=== PATIENT | male | born 1960 | race African-American/Black ===

== ENCOUNTER → 2016-06-20 | Outpatient (CLI) | payer OTHER ==
[~2016-06-20] VITALS: Ht 170.2 cm; Wt 84.4 kg
[~2016-06-20] MED LIST: ADULT LOW DOSE81 MG PO; ADVIL COLD & S1 EAC1 PO; ADVIL MIGRAINE200 M1 PO; ALEVE220 MG PO; DOXYCYCLINE 10100 MG PO; MILLIPRED DP5 MG PO; NABUMETONE 750750 M1 PO; NORCO 5-325 TA1 EACH PO; PRINIVIL20 MG PO; THERAFLU MULTI1 EACH PO
--- NOTE | ~2016-06-20 | HPC ---
[facility] [address] [place] [address] PAIN MANAGEMENT CONSULTATION Name: SALLY ZAVALA III Room #: REG [address].#: [id number] Admission: 06/20/16 Attend Phys: Chad Cooper DO Discharge: Date of : 64 Report #: [id number] THIS REPORT FOR: //name// CC: Martin Cooper The patient is a very pleasant 55-year-old gentleman seen in consultation at request of Dr. Brenda Viera for evaluation of pain, neck, right shoulder and arm, tingling going into the forearm and radiating to the fourth and fifth finger. The patient notes that the symptoms began in February without antecedent trauma and overuse. He has tried ucri-mri-ndiakpe nonsteroidal anti-inflammatory medications, exercise and physical therapy with some efficacy. Notes pain seems to be exacerbated with bending his neck or lying recumbent. Little seems to give him relief. Describes continuous aching, gnawing, throbbing pain. He rates it 8 on a 0-10 visual analog scale. REVIEW OF SYSTEMS: Complete review of systems is attached to chart and gone over with the patient. SOCIAL HISTORY: He is . Does not smoke or drink alcohol to excess. He has enjoyed remarkably good health. Has some hypertension for which he takes lisinopril. He owns an auto dealership. He has continued to work despite pain. Pain impact score is fairly low, averaging about 4.2 for all indices queried. PHYSICAL EXAMINATION: VITAL SIGNS: Reveals 5 feet 7 inches, 186 pounds gentleman, BMI is 29.1 kilograms per meter squared. Blood pressure is 148/97, pulse 73, respirations 16. NEUROLOGIC: Cranial 2-12 are grossly intact. HEENT: Pupils equal, reactive to light and accommodation. Extraocular muscles are intact. NECK: Cervical range of motion is limited. EXTREMITIES: Positive Lhermitte's, which seems to be going into the right arm. Biceps reflex is absent. All other reflexes are 1/4. Hand grasp is modestly diminished on the right. Deltoid, biceps, triceps strength is pretty symmetric about 4-5/5. HEART: Regular rhythmical without murmur. LUNGS: Clear to auscultation. ABDOMEN: Unremarkable. NEUROLOGIC: Gait is tandem. Lower extremity strength is preserved. Skin integument is intact. DIAGNOSTIC STUDIES: Include MRI of the cervical spine from 06/16/2016 noting C5-C6 to have moderate right uncinate hypertrophy with severe right neural foraminal stenosis. This corresponds with the patient's radicular symptoms. [address] [address] PAIN MANAGEMENT CONSULTATION Name: SALLY ZAVALA [facility] Room #: REG Travis Mancuso#: [id number] Admission: 06/20/16 Attend Phys: Chad Cooper DO Discharge: Date of : 64 Report #: [id number] ASSESSMENT: Symptomatic cervical radiculopathy in a pleasant 55-year-old gentleman whose comorbidity includes only hypertension. RECOMMENDATIONS: 1. Fluoroscopic guided cervical epidural injection today. 2. Nabumetone 750 b.i.d., discontinue any mkcz-ejb-ererroe anti-inflammatories. 3. Follow up in 2-3 weeks for reevaluation. Thank you for allowing me to participate in the patient's care. I will keep you abreast of his progress. PROCEDURE NOTE: Cervical epidural injection under fluoroscopy. PROCEDURE NOTE: After written and informed consent was obtained including risk of dural puncture, spinal cord trauma, paralysis and increased pain, the patient was taken to the fluoroscopy suite and placed in the prone position, with appropriate abdominal bolstering, neck was flexed, palms under the thighs. Skin was prepped with ChloraPrep. Sterile draping was applied. Skin wheal with 1% Xylocaine was raised. A 22-gauge 3-1/2 inch epidural Tuohy needle was placed via a midline approach at the C7-T1 interspace, advanced under biplanar fluoroscopy using continuous loss of resistance. With appropriate loss of resistance at the expected depth on lateral view, the glass loss of resistance syringe was disconnected. A low volume extension tubing was connected to the needle and a 5 mL syringe. Negative aspiration for cerebrospinal fluid or blood was noted. A 1 mL of Omnipaque was injected which showed spread within the epidural space on biplanar fluoroscopy. This was followed with 80 mg of triamcinolone plus 1 mL of 1.5% preservative Xylocaine. Needle was withdrawn to the interspinous ligament, 0.5 mL of Xylocaine was used to flush the needle. The needle was then completely withdrawn. The area was cleansed. Band-Aid was applied. The patient was allowed to move off the procedure table and ambulated to the recovery room, monitored for an appropriate period of time, discharged in good and stable condition. <ELECTRONICALLY SIGNED> By: Chad Cooper DO 06/23/16 1228 1605 0221 Chad Cooper DO /nt
[2016-06-20 09:55] VITALS: BP 148/97
== END | disposition home or self-care (01) ==
LOC: PAIN 06-10 12:14
DX: M54.12 Radiculopathy, cervical region (principal); I10 Essential (primary) hypertension

== ENCOUNTER → 2019-01-14 | Outpatient (CLI) | payer OTHER | LOC: NUC 06:16 | DX: I25.10 Atherosclerotic heart disease of native coronary artery without angina pectoris (principal); I10 Essential (primary) hypertension; Z88.8 Allergy status to other drugs, medicaments and biological substances; Z79.82 Long term (current) use of aspirin; Z79.899 Other long term (current) drug therapy ==

== ENCOUNTER 2019-09-30 18:07 | Emergency (ER) | payer OTHER ==
[~2019-09-30] VITALS: Ht 170.2 cm; Wt 81.7 kg
[2019-09-30 19:31] VITALS: BP 156/92
== END 2019-09-30 20:20 | disposition home or self-care (01) ==
LOC: ER 18:07
DX: R51 Headache (principal); M54.2 Cervicalgia; M25.511 Pain in right shoulder; M25.512 Pain in left shoulder; R20.0 Anesthesia of skin; R20.2 Paresthesia of skin; H53.8 Other visual disturbances; I10 Essential (primary) hypertension; Z79.899 Other long term (current) drug therapy; Z79.82 Long term (current) use of aspirin; W18.39XA Other fall on same level, initial encounter; Y93.89 Activity, other specified; Y92.89 Other specified places as the place of occurrence of the external cause; Y99.8 Other external cause status

== ENCOUNTER 2019-10-13 06:05 | Inpatient (IN) | payer OTHER ==
[2019-10-13] VITALS (8 sets, daily range): BP systolic 143–179; BP diastolic 89–115
[~2019-10-13] VITALS: Ht 170.2 cm; Wt 77.6 kg
[2019-10-13] MEDS ORDERED: COZAAR 25 MG TA25 M1 PO (06:14)
[2019-10-13] MEDS ORDERED: ATIVAN1 M1 PO (06:15)
[2019-10-13] MEDS ORDERED: NORVASC 2.5 MG2.5 M1 PO (06:24)
[2019-10-13 06:25] LABS: ABSOLUTE NEUTROPHILS 1.6 thou/uL (1.4-8.2); EOSINOPHILS 1.1 % (0.0-3.0); HEMATOCRIT 42.1 % (42.0-52.0); HEMOGLOBIN 14.2 gm/dL (14.0-18.0); MCH 29.9 pg (26.0-34.0); MCHC 33.7 g/dL (28.0-37.0); MCV 88.9 fL (80.0-100.0); MONOCYTES 10.3 % (1.0-8.0); PLATELET COUNT 213 thou/uL (150-400); POLYS 53.6 % (36.0-66.0); RBC 4.74 mil/uL (4.50-6.00); RDW 13.6 % (10.5-14.5); WBC 3.1 thou/uL (4.0-11.0)
[2019-10-13] MEDS ORDERED: CHLORTHALIDONE25 MG PO (06:25)
[2019-10-13] MEDS ORDERED: HYDROCHLOROTH12.5 M2 PO (06:25)
[2019-10-13] MEDS ORDERED: LISINOPRIL40 MG PO (06:26)
[2019-10-13 06:31] LABS: ANION GAP 9 mmol/L (7-16); BUN 9 mg/dL (7-18); CALCIUM 9.1 mg/dL (8.5-10.1); CHLORIDE 100 mmol/L (98-107); CO2 25 mmol/L (21-32); GLUCOSE 108 mg/dL (74-106); POTASSIUM 3.3 mmol/L (3.5-5.1); SODIUM 134 mmol/L (136-145)
[2019-10-13 06:40] LABS: TROPONIN-I <0.06 ng/mL (<0.06)
[2019-10-13 06:58] LABS: AMP/METHAMP Negative (Negative); BARBITURATES Negative (Negative); BENZODIAZEPINES Negative (Negative); COCAINE Negative (Negative); METHADONE Negative (Negative); OPIATES Negative (Negative); PCP Negative (Negative)
--- NOTE | 2019-10-13 07:32 | NUR ---
THE PT YELLED OUT "HELP!" THIS RN WENT INTO THE PT'S ROOM, AND HE STATED, "I JUST WANT TO SLEEP." RN JULIETA NOTIFIED ME THAT THE PT HAD REQUESTED PAIN MEDS TO BE "KNOCKED OUT." AFTER DISCUSSING THE SITUATION WITH THE PT, HE BECAME IRRITABLE THAT WE WERE NOT GOING TO GIVE HIM PAIN MEDS TO FALL ASLEEP. HE THEN STATED "WELL I HAVE A PULSATING HEADACHE, AND I'M IN PAIN." THE PT HAD REPEATEDLY REFUSED THE TORADOL OFFERED. DR POLO IS AT BEDSIDE AT THIS TIME.
--- NOTE | 2019-10-13 08:17 | EKG ---
[facility] [place] [address] ELECTROCARDIOGRAM REPORT Name: SALLY ZAVALA III Room #: REG [facility].#: [id number] Admission: 10/13/19 Attend Phys: Discharge: Date of : 64 Report #: [id number] THIS REPORT FOR: cc: Martin Marin MD, Douglas James MD Lundgren,Bryn Mayer MD [facility] ~ THIS REPORT FOR: //name// [facility] ED Test Date: 2019-10-13 Test Time: 06:19:24 Pat Name: SALLY ZAVALA Department: Room: Gender: Pleater: NISHA : 1960 Requested By: Lalo Ashley Order Number: [id number] MD: Bryn Damon Measurements Intervals [place] Rate: 72 P: 29 NE: 189 QRS: 35 QRSD: 94 T: 27 QT: 375 QTc: 411 Interpretive Statements Sinus rhythm Left ventricular hypertrophy Compared to ECG 02/20/2005 20:02:13 First degree AV block no longer present Electronically Signed On 10-13-2019 8:15:20 CDT by Bryn Damon [email or web address] <ELECTRONICALLY SIGNED> By: Bryn Damon MD, [facility] 10/13/19 0815 8 Bryn Damon MD, [facility] /EPI
--- NOTE | 2019-10-13 11:28 | NUR ---
ATTEMPTED TO CALL REPORT; WAS PLACED ON HOLD FOR 5MIN THEN TOLD DR MEEKS NEEDED TO OK THE ADMIT A 2ND TIME AND THEN TOLD THE RN WOULD SPEAK WITH HER WOOD FLOOR REFINISHER
--- NOTE | 2019-10-13 15:36 | NUR ---
Admitted per ER with 30-60 day hx of insomnia. Had heart palpitations, SOB and chest pain. Anxious needing frequent reassurance. Dr. Amezquita interviewed pt. in office. Alert and orientated X4. Keeps questioning decision to be admitted. Denies SI/HI. Breath sounds clear t/o. Reg HR auscultated. Color pink with brisk capillary refill and palpable peripheral pulses. No edema noted. Hypertensive, hydralizine 10 mg given PO. Voided lg amt yellow urine per toilet. Active bowel sounds over soft, rounded abdomen. States last BM was yesterday. Reg, steady gait. Consents signed. Belongings inventoried.
--- NOTE | 2019-10-14 02:09 | NUR ---
Care assumed of patient at 1915: Patient seated in room at start of shift. Alert and oriented x4. Calm, pleasant and cooperative. Hyperverbal at times. Denies anxiety and depression. Reports that he has not been able to sleep "for a long time". Denies SI/HI/AH/VH. Patient requested to use the phone to call his . Patient had the phone for approximately 30 minutes. Nurse went to collect phone so other peers could use the phone. Patient stated he still needed to call his , despite seeing him on the phone for quite some time. 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 States that he had to fire all of his employees due to COVID19 and is trying to do it all himself. Patient denies that this is causing him any stress. Patient then asked about the medications that were ordered. Education provided on Hydralazine and Clonazepam. Patient grateful for education and hopeful. Patient then later reported it was "too many" medications. Patient then asked to call his to review prescribed medications. Nurse allowed for patient to use the phone for 10 minutes then needed the phone back due to other peers needing to make calls. Patient complied with this but then went to another staff member and asked for the phone. It was after 9pm and education had already been completed that he had already been on the phone for over 1 hour this evening. Patient stated he needed to call his aunt. Nurse offered to call his aunt for him so she knew he was safe. Patient became somewhat frustrated and said no. Patient then stated that he has business to care for and will speak with the doctor tomorrow so he can be on the phone for longer lengths of time. CHILD LIFE ASSISTANT assessed blood pressure at start of shift. Noted to be elevated. Nurse took BP manual. Patient stated "can you take it with the machine? I don't think that is right". BP was taken with machine which reported BP that nurse had collected manual. Patient fairly pleasant, smiling at times but appears anxious. Asking several questions over and over, requesting to speak with the nurse several times, requiring one on one attention. PRN Hydralazine provided for elevated BP as well as scheduled HS medication. Patient declined HS snack. Uncooperative at times regarding sharing the phone. Spoke with patient regarding coping mechanisms. Patient unable to identify/verbalize any stressors at this time in his life. Reports that he has a good business, a good family and has no worries, except for the fact that he can't sleep. Patient was able to retire to bed at a reasonable hour and has been able to rest quietly since.
[2019-10-14 07:15] VITALS: BP 162/105
[2019-10-14 08:40] VITALS: BP 162/105
--- NOTE | 2019-10-14 09:00 | NUR ---
PT RESTING IN BED. PT STATED HE DIDN'T THINK HE SHOULD BE HERE DUE TO THE LOUD NOISES. PT UP AD LIAN THIS AM AND USING PHONE TALKING TO HIS OR WORK RELATED. WENT OVER INFORMATION ON VIT D SUPPLEMENT. WENT OVER FOOD THAT HAS VIT D AND DECREASE VIT D LEVEL EFFECTS.
--- NOTE | 2019-10-14 12:16 | NUR ---
VAZQUEZ met with pt and Dr. Amezquita. In that meeting pt stated he would like to go home. He asked Dr. Amezquita if he can go to another floor because he "is not like the other patients." Meaning that the other pts have more psych and behavioral issues, and he couldn't sleep. Dr. Amezquita informed him that there isn't any other floor. He asked if he could go home today. Dr. Amezquita agreed if he would allow SW to arrange for him to attend a PHP program with [facility]. SW and pt contacted pt's to give her an update, and Drea was upset about pt discharging. She said pt is not sleeping and has "boobie traps" and going to several doctors for different issues. She believes that he legitimately has issues, but has not had success in chasing them down. SW explained that she cannot keep pt against his will, and that he has the right to dictate he has had enough from treatment. She became upset and pt and Drea engaged in a passionate conversation. SW mediated the conversation. Drea had to leave due to her own therapy. Pt stayed in SW office and aired his upset with the things that his said. SW and pt contacted [facility] and found out the information on how to enroll. SW and pt were told that pt will need to contact them once he discharges to do his intake and schedule an appt to begin services. VAZQUEZ will fax his discharge documents to [phone]. VAZQUEZ will continue to follow pt during his stay on this unit.
--- NOTE | 2019-10-14 12:50 | NUR ---
VAZQUEZ D/C note VAZQUEZ provided pt a Social Work handout with the information to contact [facility]. VAZQUEZ asked him to do so by the end of the next business day of 10/18/2019 @1600. Pt said he will do so as soon as he leaves today.
[2019-10-14 13:12] VITALS: BP 162/105
[2019-10-14] MEDS ORDERED: HYDRALAZINE 10M10 MG PO (13:51)
[2019-10-14] MEDS ORDERED: NORVASC10 MG PO (13:53)
[2019-10-14] MEDS ORDERED: CLONAZEPAM 1 MG1 M1 PO (13:54)
[2019-10-14] MEDS ORDERED: CLONAZEPAM 0.50.5 M1 PO (13:54)
[2019-10-14] MEDS ORDERED: TRIAMTERENE-HC1 EAC1 PO (13:57)
[2019-10-14] MEDS ORDERED: VITAMIN D325 MCG PO (13:58)
[2019-10-14 14:33] VITALS: BP 162/105
--- NOTE | 2019-10-14 15:00 | NUR ---
PT LEFT VIA AMBULATION WITH FOR DISCHARGE. DR. MEEKS SPOKE TO PATIENT ABOUT HIS MEDICATION. PT VERBALY UNDERSTOOD D/C ORDERS.
--- NOTE | 2019-10-16 17:12 | H ---
[facility] [place] [address] [place] [address] HISTORY AND PHYSICAL Name: SALLY ZAVALA III Room #: 528B-B DIS IN M.R.#: [id number] Admission: 10/13/19 Attend Phys: Eduardo Amezquita DO Discharge: 10/14/19 Date of : 64 Report #: [id number] THIS REPORT FOR: cc: Martin Marin MD,Martin Amezquita,Eduardo Mayer DO ~ CC: Eduardo Marin DATE OF SERVICE: 10/13/2019 INPATIENT PSYCHIATRIC EVALUATION ATTENDING PHYSICIAN: Eduardo Amezquita DO EEG TECH: Mateo Solomon MD REASON FOR ADMISSION: Insomnia, agitation, refractory anxiety, hopelessness, helplessness. SOURCES OF INFORMATION: Interview with the patient, collateral from , Emergency Room notes. HISTORY OF PRESENT ILLNESS: This is a 58-year-old black male who presented to the ER at [facility]. His initial complaint was heart palpitations all night, chest pain, shortness of air, unable to sleep, worse this a.m. Reason for presenting other than stated above insomnia, heart palpitations, the patient has had poor sleep for several weeks. He reports as well he has had ringing in his ears dating back to June. The patient required IV Benadryl to come down in the ER. He is reporting numerous doctors he has seen including his primary care physician Dr. Martin Marin, trash collector who treated him with doxycycline and prednisone, tenter frame operator Dr. Eugene Clinton; a neurologist Dr. Angi thomas. 10 point review of systems negative ecept for insomnia, anxiety and restlessness. He has had an MRI, MRA, diagnostic imaging. He has seen a chiropractor, who did a manipulation. He saw Dr. Shelley Monson a sleep medicine physician, has ordered a sleep study. The sleep study has not been completed. Dr. Marin tried to treat his blood pressure, did not work. He was started on lisinopril, then amlodipine was added, then he was changed to chlorthalidone, most recently, he was changed to Cozaar. He has been running solid stage 1 hypertension, but not any urgency territory with it. His reports that this has been very disruptive to her life. She has not been [facility] [address] [place] [address] HISTORY AND PHYSICAL Name: SALLY ZAVALA [facility] Room #: 528B-B [facility] M.R.#: [id number] Admission: 10/13/19 Attend Phys: Eduardo Amezquita, Discharge: 10/14/19 Date of : 64 Report #: [id number] able to sleep since 3:00 p.m. yesterday. Additional information from the patient, he describes past medical history of hypertension, only surgery was a root canal. His mom of a traumatic accident when he was young. His father of emphysema. I am not clear if he has siblings. He has 2 adult daughters and 2 grandchildren. He has been , he says for around 30 years. Denies history. Denies civil or criminal problems. He reports inactive sex life, lack of desire at times due to his recent medication. 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 Additional information is no known allergies. RECENT MEDICATIONS: Losartan 25 mg p.o. daily, Ativan 1 mg daily p.r.n., which an ED doctor prescribed in the past. SOCIAL HISTORY: Denies smoking, alcohol or recreational drug use. LABORATORY DATA: EKG was done in the ER, sinus rhythm, rate of 72, LVH, normal axis. Laboratories from the ER; sodium 134, potassium 3.3, chloride 100, bicarbonate 25, anion gap 9, BUN 9, creatinine 1.0, estimated GFR 94, glucose 108, and calcium 9.1. Troponin less than 0.06. TSH 1.013. White blood cell count 3.1, H and H 14.2 and 42.1, and platelet count was 213,000. UDS was negative. Chest x-ray was done, which showed increased right basilar density favoring atelectasis rather than pneumonitis. ADDITIONAL INFORMATION: The patient was making statements in the ER like he must be admitted. His states he was [facility] near their house for same symptoms. Reports a 13-pound weight loss over the last month. Dr. Ashley talked to Dr. Marin, who reported he has been calling his office often times daily or multiple times a day displaying signs of sea, depression, anxiety. He has had extensive workups for these symptoms within the last week. He had been referred to Dr. Edgardo Crawford who apparently had a telehealth consultation, was allegedly prescribed trazodone. PHYSICAL EXAMINATION: MUSCULOSKELETAL: Normal gait and station. MENTAL STATUS EXAMINATION: This is a well-developed, black male, appearing stated age. Attention intact. Concentration intact. Speech is normal in rate, volume and tone. THOUGHT PROCESS: Linear goal directed. Thought content focused on his symptoms of insomnia finding "what the root of the problem is." Denied SI, HI. Denied auditory, visual, or tactile hallucinations. Memory not formally tested. Insight limited. Judgment limited. Fund of knowledge at least average range. FORMULATION: A 58-year-old black male being admitted for failure of outpatient [facility] [address] [place] [address] HISTORY AND PHYSICAL Name: SALLY ZAVALA III Room #: 528B-B DIS IN M.R.#: [id number] Admission: 10/13/19 Attend Phys: Eduardo Amezquita DO Discharge: 10/14/19 Date of : 64 Report #: [id number] treatment to address his symptomatology, chaotic medical evaluations. Denied SI or HI at this time. DIAGNOSES: At this time; unspecified depression, unspecified anxiety, rule out major depressive disorder, rule out somatoform disorder. PLAN: Evaluate, stabilize, obtain collateral. Start Klonopin 0.5 mg p.o. b.i.d. and 1 mg p.o. at 10:00 p.m. We will continue to evaluate, stabilize, obtain records from Dr. Thomas. We will start him on vitamin D 5000 international units a day. Check D level. Continue Amlodipine 10 mg p.o. daily, actually the hospitalist ordered that. Also, hydralazine 10 mg p.o. q. 6 for hypertensive urgency related symptoms, again hospitalist ordered that. House PRNs. ESTIMATED LENGTH OF STAY: 4-6 days. STRENGTHS: Insured, has a supportive . WEAKNESSES: Poor insight. MEDICAL COMORBIDITIES: Hypertension to be managed by hospitalist. Time spent on counseling with and his today was extensive exceeding 120 minutes discussing treatment options, discussing lots of issues for example why he could not get sleep polysomnogram done while he was in an inpatient hospital. <ELECTRONICALLY SIGNED> By: Eduardo Amezquita DO 10/16/19 1712 1450 1502 Eduardo Amezquita DO /nt
--- NOTE | 2019-10-18 21:06 | D ---
[facility] [place] [address] DISCHARGE SUMMARY Name: SALLY ZAVALA III Room #: 528B-B DIS IN M.R.#: [id number] Admission: 10/13/19 Attend Phys: Eduardo Amezquita DO Discharge: 10/14/19 Date of : 64 Report #: [id number] THIS REPORT FOR: cc: Martin Marin MD, Douglas James MD Kerstein, Andrew H. DO ~ THIS REPORT FOR: //name// CC: Eduardo Marin DATE OF SERVICE: 10/14/2019 INPATIENT PSYCHIATRIC DISCHARGE SUMMARY ATTENDING PHYSICIAN: Eduardo Amezquita DO FIXED INCOME PORTFOLIO MANAGER AT THE TIME OF DISCHARGE: Mateo Solomon MD DISCHARGE DIAGNOSES: Unspecified anxiety disorder. Please note greater than 60 minutes were spent on discharge activities. The patient did allow us to arrange aftercare for him, so I did not make this a discharge against medical advice; however, it was my recommendation he remain in the hospital over the weekend for better evaluation and care measures. DISCHARGE PLAN: Discharging to his home where he lives with his in the [place] area. Aftercare for this patient, it is recommended to be the partial hospitalization program at [facility], so he can get medication management as well as intensive therapy. DISCHARGE MEDICATION: For this patient involved a lot of antihypertensive medication. Hydralazine 10 mg p.o. q. 6 hours p.r.n. for blood pressure greater than 160. He has a blood pressure machine at home. I only gave him a supply of #10 for these. Norvasc 10 mg p.o. daily for hypertension, clonazepam 0.5 mg at 0900 and 1500; I gave him a 15-day supply as well as a 15-day supply of clonazepam 1 mg p.o. at 2200. Also, triamterene/hydrochlorothiazide 37.5/25 one tab p.o. daily, cholecalciferol 5000 international units p.o. daily. I advised the patient to log his blood pressure at least twice per day, it is 2-3 times a day total. Also, losartan was discontinued on this admission as that had been his previous blood pressure medication. He is recommended to be on a heart healthy diet. ACTIVITY LEVEL: As tolerated. The patient is encouraged to see his primary care physician, Dr. Martin Marin within 1 month. He also has an upcoming sleep lab polysomnogram to do. [address] [address] DISCHARGE SUMMARY Name: SALLY ZAVALA III Room #: 528B-B [facility]#: [id number] Admission: 10/13/19 Attend Phys: Eduardo Amezquita DO Discharge: 10/14/19 Date of : 64 Report #: [id number] During this admission, I reviewed the reports from diagnostic imaging where he had an MRI of the brain, MRA of the neck and numerous MRIs of the cervical spine from the past several months as well as some remote ones. He does have degenerative disk disease. His MRI of the brain was normal and I did relay this information to him. The patient's laboratories on this admission; white blood cell count 3.1, H and H 14.2 and 42.1, platelet count 213. Chemistry: Sodium 134, potassium 3.3, chloride 100, bicarbonate 25, anion gap 9, BUN 9, creatinine 1.0, estimated GFR 94, glucose 108, calcium 9.1. Troponin less than 0.06. Vitamin B12 level was absolutely low at 258. I gave him instructions to take 1000 mcg of B12 daily. Repeat level in 3 months. We did give him 1000 mcg IM of B12 before he left. Similarly, his vitamin D level resulted 15.6. I put him on 5000 international units a day vitamin D3 with advise to recheck in 3 months. TSH is 1.013. REASON FOR ADMISSION: From 10/13/2019, the patient had presented in the ER with heart palpitations. His medical workup was negative. He had profound insomnia, anxiety, was helpless, wanting something done. HOSPITAL COURSE: The patient was admitted to the Geriatric Psychiatry Unit. Unfortunately and non-unexpectedly as the patient has been going to numerous specialists including Cardiology, Neurology, Sleep Medicine, chiropractor, his PCP as well as Otolaryngology for tinnitus, the patient was dissatisfied with the treatment here in the hospital and requested to be discharged. His was in favor of him staying. It sounds like there are significant relationship difficulties due to his health concerns. He was not suicidal or homicidal, not psychotic, not meeting criteria for involuntary hospitalization. PHYSICAL EXAMINATION: VITAL SIGNS: On the day of discharge, temperature 36.7, pulse 103, respirations 18, BP 162/105. MUSCULOSKELETAL: Normal gait and station, wearing a hat, dressed in street clothes. MENTAL STATUS EXAMINATION: This is a well-developed, black male, appearing his own stated age. Attention fair. Concentration fair. Speech is normal in rate, volume and tone. Thought process is linear and goal directed. Thought content focused on getting the cause of his problems and not accepting as they could be psychiatric entities at times. Denied suicidal ideation or homicidal ideation. Denied auditory, visual or tactile hallucinations. Mood and affect congruent, constricted, anxious. Insight limited. Judgment fair to limited. Fund of knowledge at least average. 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 He is future oriented, looking forward to continuing and growing children. [facility] [address] [place] [address] DISCHARGE SUMMARY Name: SALLY ZAVALA III Room #: 528B-B DIS IN M.R.#: [id number] Admission: 10/13/19 Attend Phys: Eduardo Amezquita DO Discharge: 10/14/19 Date of : 64 Report #: [id number] PROGNOSIS: For this patient is guarded. It is my hope he does continue with aggressive followup with [facility]. <ELECTRONICALLY SIGNED> By: Eduardo Amezquita DO 10/18/196 22 28 Eduardo Amezquita DO /nt
== END 2019-10-14 15:28 | disposition home or self-care (01) | DRG 880 ==
LOC: ER 06:05 → SBH 10:26 → EROBS 10:26 → SBH 10:26
PROVIDERS: Emergency Medicine; ADMIT Psychiatry & Neurology Psychiatry
DX: F41.9 Anxiety disorder, unspecified (principal); F32.9 Major depressive disorder, single episode, unspecified; E87.6 Hypokalemia; I10 Essential (primary) hypertension; G47.00 Insomnia, unspecified; Z79.899 Other long term (current) drug therapy
CPT/HCPCS: 10880

== ENCOUNTER 2019-12-28 03:00 | Emergency (ER) | payer OTHER ==
[~2019-12-28] VITALS: Ht 170.2 cm; Wt 71.2 kg
[~2019-12-28 03:00] MED LIST changes: +ATIVAN1 M1 PO; +CHLORTHALIDONE25 MG PO; +CLONAZEPAM 0.50.5 M1 PO; +CLONAZEPAM 1 MG1 M1 PO; +COZAAR 25 MG TA25 M1 PO; +HYDRALAZINE 10M10 MG PO; +HYDROCHLOROTH12.5 M2 PO; +LISINOPRIL40 MG PO; +NORVASC 2.5 MG2.5 M1 PO; +NORVASC10 MG PO; +TRIAMTERENE-HC1 EAC1 PO; +VITAMIN D325 MCG PO
[2019-12-28] MEDS ORDERED: LISINOPRIL40 MG PO (03:08)
[2019-12-28 07:18] VITALS: BP 147/85
== END 2019-12-28 07:04 | disposition home or self-care (01) ==
LOC: ER 03:00
DX: G47.00 Insomnia, unspecified (principal); I10 Essential (primary) hypertension; Z79.899 Other long term (current) drug therapy; Z88.8 Allergy status to other drugs, medicaments and biological substances